=== PATIENT | female | born 1945 | race Caucasian/White ===

== ENCOUNTER 2018-09-21 11:19 | Outpatient (CLI) | payer OTHER | END 2018-09-21 11:20 | disposition home or self-care (01) | LOC: LAB 11:19 | PROVIDERS: ATTEND Physician Assistant Medical | DX: M79.661 Pain in right lower leg (principal) | CPT/HCPCS: 36415; 85379 ==

== ENCOUNTER 2019-11-26 17:41 | Outpatient (CLI) | payer MEDICARE | END 2019-11-26 17:42 | disposition home or self-care (01) | LOC: COV 17:41 | PROVIDERS: ATTEND Family Medicine | DX: R05 Cough (principal); R50.9 Fever, unspecified | CPT/HCPCS: 81599; U0002 ==

== ENCOUNTER 2020-03-30 10:54 | Outpatient (CLI) | payer MEDICARE, OTHER | END 2020-03-30 10:55 | disposition home or self-care (01) | LOC: COV 10:54 | PROVIDERS: ATTEND Family Medicine | DX: J02.9 Acute pharyngitis, unspecified (principal); R09.81 Nasal congestion; Z20.828 Contact with and (suspected) exposure to other viral communicable diseases ==

== ENCOUNTER 2021-09-02 11:45 | Emergency (ER) | payer MEDICARE, OTHER ==
--- NOTE | 2021-09-02 12:23 | ED Physician Documentation ---
PD HPI FOCAL NEURO - Stated complaint Stated Complaint: facial tingling/numbness - Chief complaint Chief Complaint: Neuro - History obtained from History obtained from: Patient - Additional information Additional information: Is a griselda 76-year-old woman with history of hypercholesterolemia and WPW but no other arrhythmias or history of A. fib. She was in her usual state of health right around 9 AM and developed a 10 to 15-minute episode of right-sided facial numbness associated with vertigo and disequilibrium but no diplopia. It went away after 10 or 15 minutes and now has no symptoms. It was not associated with arm or leg numbness and it was not associated with weakness anywhere. She is currently treating her hypercholesterolemia with diet as she has had side effects with statins and other cholesterol medications in the past. She not diabetic does not have a diagnosed history of hypertension. Review of Systems Ten Systems: 10 systems reviewed and negative Constitutional: denies: Fever, Chills, Myalgias Nose: reports: Reviewed and negative Throat: reports: Reviewed and negative Cardiac: reports: Reviewed and negative Respiratory: reports: Reviewed and negative PD PAST MEDICAL HISTORY - Allergies Allergies/Adverse Reactions: Allergies Allergy/AdvReac Type Severity Reaction Status Date / Time Unable to Assess Allergy Verified 09/02/21 11:56 PD ED PE NORMAL - Vitals Vital signs reviewed: Yes - General General: Alert and oriented X 3, No acute distress - HEENT HEENT: PERRL, EOMI - Neck Neck: Supple, no meningeal sign, No bony TTP - Cardiac Cardiac: RRR, No murmur - Respiratory Respiratory: No respiratory distress, Clear bilaterally - Abdomen Abdomen: Normal bowel sounds, Soft, Non tender - Back Back: No CVA TTP, No spinal TTP - Derm Derm: Normal color, Warm and dry - Extremities Extremities: No edema, No calf tenderness / cord - Neuro Neuro: Alert and oriented X 3, Normal speech NIHSS - Time Time: 12:23 - Level of Consciousness Level of consciousness: (0) Alert, Keenly responsive LOC Questions: (0) Answers both Q's correct LOC Commands: (0) Performs both correctly - Gaze Best Gaze: (0) Normal - Visual Visual: (0) No loss - Facial Palsy Facial Palsy: (0) Normal, symmetrical movement - Motor Arms (both separate) Motor Arm (right): (0) No drift Motor Arm (left): (0) No drift - Motor Legs (both separate) Motor Leg (right): (0) No drift Motor Leg (left): (0) No drift - Limb Ataxia Limb Ataxia: (0) Absent - Sensory Sensory: (0) Normal - Best Language Best Language: (0) No aphasia - Dysarthria Dysarthria: (0) Normal - Extinction and Inattention (formally neg Extinction and inattention: (0) No abnormality - Total Score/Results Total Score/Result: 0 Results - Vitals Vitals: Vital Signs - 24 hr 09/02/21 09/02/21 09/02/21 11:51 11:55 13:55 Temperature 36.3 C L 36.5 C Heart Rate 91 91 63 Respiratory 16 16 12 Rate Blood Pressure 170/65 H 170/65 H 130/68 O2 Saturation 97 97 100 Oxygen O2 Source Room air - EKG (time done) 1202 Rate: Rate (enter#) (63) Rhythm: NSR [place]: Normal Intervals: Normal TN QRS: Normal Ischemia: Normal ST segments - Labs Labs: Laboratory Tests 09/02/21 09/02/21 09/02/21 12:36 12:36 12:36 WBC 4.8 RBC 4.20 Hgb 13.8 Hct 40.7 MCV 96.9 MCH 32.9 H MCHC 33.9 RDW 13.2 Plt Count 224 MPV 9.0 Neut # (Auto) 3.0 Lymph # (Auto) 1.2 L [place] # (Auto) 0.4 Eos # (Auto) 0.1 Baso # (Auto) 0.1 Absolute Nucleated RBC 0.00 Nucleated RBC % 0.0 PT INR Sodium 132 L Potassium 4.0 Chloride 97 L Carbon Dioxide 28 Anion Gap 7.0 BUN 14 Creatinine 0.8 Estimated GFR (MDRD) 69 L Glucose 85 Calcium 8.7 Triglycerides 56 Cholesterol 227 H LDL Cholesterol, Calc 140 H VLDL Cholesterol 11 HDL Cholesterol 76 LDL/HDL Ratio 1.8 Cholesterol/HDL Ratio 3.0 09/02/21 12:50 WBC RBC Hgb Hct MCV MCH MCHC RDW Plt Count MPV Neut # (Auto) Lymph # (Auto) [place] # (Auto) Eos # (Auto) Baso # (Auto) Absolute Nucleated RBC Nucleated RBC % PT 10.9 INR 1.0 Sodium Potassium Chloride Carbon Dioxide Anion Gap BUN Creatinine Estimated GFR (MDRD) Glucose Calcium Triglycerides Cholesterol LDL Cholesterol, Calc VLDL Cholesterol HDL Cholesterol LDL/HDL Ratio Cholesterol/HDL Ratio PD MEDICAL DECISION MAKING - ED course ED course: 76-year-old woman presents with resolved TIA consisting of right-sided facial numbness and vertigo lasting 10 to 15 minutes. ABD CD 2 score is 3 and we discussed her risk of imminent stroke which is fairly low at 1% for 2 days, 1.2% for 7 days and approximately 3% for 90 days. Vascular imaging with CT angiography of the head neck was negative. We discussed admission which she declined. She wants to talk with her doctor about management of hypercholesterolemia given multiple medication reactions in the past. Departure - Departure Disposition: Home, Self Care Clinical Impression: TIA (transient ischemic attack), Hypercholesteremia Condition: Good Record reviewed to determine appropriate education?: Yes Instructions: ED Transient Ischemic Attack Follow-Up: Ryley Alexis MD [Credentialed Staff Provider] - Comments: You were seen today for a TIA, your ABCD 2 score is 3 suggesting a short-term stroke risk of 1% in the next 2 days, 1.2% in the next 7 days, and 3% over the next 90 days. Talk with your doctor about cholesterol control, take a baby aspirin, 81 mg a day. Return by ambulance immediately for new or worsening or recurrent symptoms.
[2021-09-02] MEDS ORDERED: IOPAMIDOL-300 100 ML VIAL ONE (12:36)
[2021-09-02 12:57] LABS: BASOPHILS # (AUTO) 0.1 10^3/uL (0.0-0.1); BASOPHILS % (AUTO) 1.2 %; EOSINOPHILS # (AUTO) 0.1 10^3/uL (0.0-0.7); EOSINOPHILS % (AUTO) 1.9 %; HCT - HEMATOCRIT 40.7 % (37.0-47.0); HGB - HEMOGLOBIN 13.8 g/dL (12.0-16.0); LYMPHOCYTES # (AUTO) 1.2 10^3/uL (1.5-3.5); LYMPHOCYTES % (AUTO) 25.5 %; MEAN CORPUSCULAR HEMOGLOBIN 32.9 pg (27.0-31.0); MEAN CORPUSCULAR HGB CONC 33.9 g/dL (32.0-36.0); MEAN CORPUSCULAR VOLUME 96.9 fL (81.0-99.0); MONOCYTES # (AUTO) 0.4 10^3/uL (0.0-1.0); MONOCYTES % (AUTO) 8.9 %; NEUTROPHILS % (AUTO) 62.3 %; PLT - PLATELET COUNT 224 10^3/uL (130-450); RED CELL DISTRIBUTION WIDTH 13.2 % (12.0-15.0); WHITE BLOOD COUNT 4.8 x10^3/uL (4.8-10.8)
[2021-09-02 13:01] LABS: PT - PROTHROMBIN TIME 10.9 secs (9.9-12.6)
[2021-09-02 13:04] LABS: CALCIUM 8.7 mg/dL (8.5-10.3); CREATININE 0.8 mg/dL (0.4-1.0)
[2021-09-02 13:38] LABS: CHOLESTEROL 227 mg/dL; HDL CHOLESTEROL 76 mg/dL; LDL CHOLESTEROL,CALCULATED 140 mg/dL; LDL/HDL RATIO 1.8 (<4.4); TRIGLYCERIDES 56 mg/dL; VLDL CHOLESTEROL 11 mg/dL
--- NOTE | 2021-09-02 14:14 | CT Report ---
PROCEDURE: ANGIO HEAD W/WO INDICATIONS: Tongue numbness. Dizziness. CONTRAST: IV CONTRAST: Isovue 300 ml: 80 PO CONTRAST: *NO PO CONTRAST TECHNIQUE: Precontrast 4.5 mm thick angled axial sections acquired from the foramen magnum to the vertex. Afte r the administration of intravenous contrast, 1 mm thick sections acquired through the [place] of [place] is. Postcontrast 4.5 mm thick sections then re-acquired from the foramen magnum to the vertex. 3-di mensional akqmpcj-yeiwwuhek-edcbbekuis (MIP) and/or volume rendering reformats were acquired of the c entral intracranial vasculature. For radiation dose reduction, the following was used: automated ex posure control, adjustment of mA and/or kV according to patient size. COMPARISON: None FINDINGS: Image quality: Excellent. Anterior circulation: Intracranial internal carotid arteries are normal in size and flow. The flow within the paired anterior cerebral arteries is normal and symmetric. The flow within the middle cer ebral arteries is normal and symmetric. The anterior communicating artery is seen. No aneurysms are seen. Posterior circulation: Visualized portions of the vertebral arteries demonstrate normal caliber, and join to form a normal appearing basilar artery. Flow within the posterior cerebral arteries is norm al and symmetric. No aneurysms are seen. CSF spaces: Ventricles are normal in size and shape. Basal cisterns are patent. No extra-axial flu id collections. Brain: No midline shift. No intracranial bleeds or masses. Hurtado-white matter interface appears int act. Skull and face: Calvarium and facial bones appear intact, without suspicious lesions. Sinuses: Mild mucosal thickening noted in the axillary sinuses. Mastoids are clear. IMPRESSION: 1. No acute intracranial disease process. 2. No large vessel occlusion, vascular stenosis, vascular dissection or aneurysm. Reviewed by: Kerrie Lacy MD, PhD on 09/02/2021 2:13 PM PST Approved by: Kerrie Lacy MD, PhD on 09/02/2021 2:13 PM PST Station ID: [id number]
--- NOTE | 2021-09-02 14:18 | CT Report ---
PROCEDURE: ANGIO NECK W INDICATIONS: TIA sx CONTRAST: IV CONTRAST: Isovue 300 ml: 80 PO CONTRAST: *NO PO CONTRAST TECHNIQUE: After the administration of intravenous contrast, 1.5 mm axial sections acquired from the aortic arch to the [place] of [place]. Coronal 3-D maximum intensity projection (MIP) and/or volume rendering ref ormats were then performed. For radiation dose reduction, the following was used: automated exposur e control, adjustment of mA and/or kV according to patient size. COMPARISON: None. FINDINGS: Image quality: Excellent. Carotid system: The great vessels demonstrate a conventional anatomy as they arise from the aortic a rch. The origins of the common carotid arteries appear patent. The common carotid arteries demonstr ate normal calibers and courses. Soft and calcified atherosclerotic plaque noted in the origins of th e internal carotid arteries bilaterally which causes less than 50% stenosis of the vessels. Posterior circulation: The origins of the vertebral arteries appear patent. The more superior porti ons of the vertebral arteries demonstrate normal course and caliber. They join to form a normal appe aring basilar artery. Soft tissues: Visualized neck soft tissues demonstrate no suspicious abnormalities. The thyroid is atrophied. Bones: No suspicious bony lesions. Spine degenerative disc disease and facet arthropathy are noted. Visualized cervical spine appears normally aligned. IMPRESSION: No large vessel occlusion, hemodynamically significant vascular stenosis, vascular dissection or aneu rysm. The estimate of stenosis included in the report of the imaging study was calculated using the NASCET method Reviewed by: Kerrie Lacy MD, PhD on 09/02/2021 2:17 PM PST Approved by: Kerrie Lacy MD, PhD on 09/02/2021 2:17 PM PST Station ID: [id number]
[2021-09-02 14:57] VITALS: BP 137/68
[2021-09-02] MEDS ORDERED: IOPAMIDOL-300 100 ML VIAL IVP ONE (19:05)
== END 2021-09-02 15:15 | disposition home or self-care (01) ==
LOC: ED 11:45
DX: G45.9 Transient cerebral ischemic attack, unspecified (principal); E78.00 Pure hypercholesterolemia, unspecified
CPT/HCPCS: 36415; 70496; 70498; 80048; 80061; 85025; 85610; 93005; 99283; 99284; Q9967; 83721

== ENCOUNTER 2022-06-25 14:24 | Emergency (ER) | payer MEDICARE, OTHER ==
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
[2022-06-25 15:29] LABS: HCT - HEMATOCRIT 41.9 % (37.0-47.0); HGB - HEMOGLOBIN 13.8 g/dL (12.0-16.0)
[2022-06-25 15:41] LABS: CALCIUM 9.2 mg/dL (8.5-10.3); CREATININE 0.8 mg/dL (0.4-1.0); POTASSIUM 4.3 mmol/L (3.5-5.0)
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
[2022-06-25 16:23] VITALS: BP 135/66
== END 2022-06-25 16:23 | disposition home or self-care (01) ==
LOC: ED 14:24
DX: S06.0X0A Concussion without loss of consciousness, initial encounter (principal); W22.8XXA Striking against or struck by other objects, initial encounter; Z86.73 Personal history of transient ischemic attack (TIA), and cerebral infarction without residual deficits; Z79.82 Long term (current) use of aspirin
CPT/HCPCS: 36415; 80048; 85014; 85018; 99282; 99284

== ENCOUNTER 2022-07-27 16:03 | Outpatient (CLI) | payer MEDICARE, OTHER ==
--- NOTE | 2022-07-27 21:20 | XRAY Report ---
PROCEDURE: Ankle 3 View LT INDICATIONS: LEFT ANKLE SPRAIN TECHNIQUE: 3 views of the ankle were acquired. COMPARISON: None FINDINGS: Bones: No fractures or dislocations. Ankle mortise is normally aligned. No suspicious bony lesions . Soft tissues: No tibiotalar joint effusion. Achilles tendon appears normal. IMPRESSION: No acute osseous abnormality. If symptoms persist, follow-up radiographs and/or CT or MR I may be helpful for further evaluation. Reviewed by: Garrett Maradiaga MD on 07/27/2022 9:19 PM PST Approved by: Garrett Maradiaga MD on 07/27/2022 9:19 PM [facility] Station ID: [id number]
== END 2022-07-27 16:04 | disposition home or self-care (01) ==
LOC: DI.S 16:03
PROVIDERS: ATTEND Emergency Medicine
DX: S93.492A Sprain of other ligament of left ankle, initial encounter (principal)

== ENCOUNTER 2023-01-09 11:04 | Emergency (ER) | payer MEDICARE, OTHER ==
--- NOTE | 2023-01-09 11:36 | ED Physician Documentation ---
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 At that time she was on 3 months of Xarelto and tolerated well. After hip replacement 1 year ago she was on prophylactic Xarelto and broke out in a rash, but not clear if it was from that or other medication she was on. Last had an upper endoscopy, she was in the left lateral decubitus position for that procedure. Over the subsequent days while gardening heavily she developed pain in her left calf. No shortness of breath. PD PAST MEDICAL HISTORY - Allergies Allergies/Adverse Reactions: Allergies Allergy/AdvReac Type Severity Reaction Status Date / Time clindamycin Allergy Rash Verified 06/25/22 14:40 rivaroxaban [From Xarelto] Allergy Rash Verified 06/25/22 14:38 tramadol Allergy Rash Verified 06/25/22 14:38 Sulfa (Sulfonamide AdvReac Rash Verified 06/25/22 14:40 Antibiotics) PD ED PE NORMAL - Vitals Vital signs reviewed: Yes - General General: Alert and oriented X 3, No acute distress - Derm Derm: Normal color, Warm and dry - Extremities Extremities: Other (Positive Homans' sign. Symmetric legs. Normal pedal pulses. Some tenderness in the left calf.) - Neuro Neuro: Alert and oriented X 3, Normal speech Results - Vitals Vitals: Vital Signs - 24 hr 01/09/23 01/09/23 01/09/23 11:19 11:48 13:09 Temperature 36.4 C L 36.4 C L Heart Rate 62 62 59 L Respiratory 18 18 18 Rate Blood Pressure 142/68 H 123/68 119/63 O2 Saturation 99 96 100 Oxygen O2 Source Room air - Rads (name of study) Left lower extremity duplex showed superficial phlebitis Relevant Findings:: Final report received PD Medical Decision Making - ED course ED course: 77-year-old with history of DVT presents with left calf pain and is found to have superficial phlebitis. We discussed options for treatment including short course of anticoagulants versus aspirin and a repeat ultrasound in a week and she opted for the latter. Departure - Departure Disposition: 01 Home, Self Care Clinical Impression: Superficial thrombophlebitis Condition: Good Record reviewed to determine appropriate education?: Yes Instructions: ED Phlebitis Superficial Comments: As discussed, there is no clot in the deep veins of your left leg. There is a superficial venous thrombus in your left calf. Out of an abundance of caution I recommend calling your physician and having a repeat ultrasound in a week to make sure it is not extending. Return for new or worsening symptoms. Continue aspirin. You can also apply heat to the area. Discharge Date/Time: 01/09/23 13:11
[2023-01-09 13:10] VITALS: BP 119/63
--- NOTE | 2023-01-09 14:00 | Ultrasound Report ---
PROCEDURE: Duplex Ext Veins Left INDICATIONS: leg pain TECHNIQUE: Real-time imaging, as well as color and pulse Doppler interrogation, were performed of the lower extr emity deep veins from the inguinal ligament to the popliteal fossa. COMPARISON: None. FINDINGS: The deep veins are normally compressible, and free of intraluminal thrombus. Color and pu lse Doppler demonstrate normal phasic intraluminal flow. There is normal augmentation response to di stal compression maneuver. At the area of pain, there is superficial thrombophlebitis of the proximal/medial calf within the mus kristan. IMPRESSION: No evidence of DVT. At the area of pain, there is superficial thrombophlebitis of the proximal/medial calf within the mus kristan. Reviewed by: Henrry Barton MD on 01/09/2023 1:59 PM PDT Approved by: Henrry Barton MD on 01/09/2023 1:59 PM PDT Station ID: [id number]
== END 2023-01-09 13:11 | disposition home or self-care (01) ==
LOC: ED 11:04
DX: I80.3 Phlebitis and thrombophlebitis of lower extremities, unspecified (principal)
CPT/HCPCS: 99283; 99284

== ENCOUNTER 2023-01-18 21:58 | Outpatient (CLI) | payer MEDICARE, OTHER ==
--- NOTE | 2023-01-19 11:14 | Ultrasound Report ---
PROCEDURE: Duplex Ext Veins Left INDICATIONS: L CALF SUPERFICIAL VENOUS THROMBUS TECHNIQUE: Real-time imaging, as well as color and pulse Doppler interrogation, were performed of the lower extr emity deep veins from the inguinal ligament to the popliteal fossa. COMPARISON: 01/09/2023 FINDINGS: The deep veins are normally compressible, and free of intraluminal thrombus. Color and pu lse Doppler demonstrate normal phasic intraluminal flow. There is normal augmentation response to di stal compression maneuver. IMPRESSION: No evidence of left lower extremity deep venous thrombosis. Previously visualized left calf venous th rombosis is no longer visualized. Reviewed by: Garrett Maradiaga MD on 01/19/2023 11:12 AM PDT Approved by: Garrett Maradiaga MD on 01/19/2023 11:12 AM PDT Station ID: [id number]
== END 2023-01-18 21:59 | disposition home or self-care (01) ==
LOC: DI 21:58
PROVIDERS: ATTEND Family Medicine
DX: Z09 Encounter for follow-up examination after completed treatment for conditions other than malignant neoplasm (principal); Z86.718 Personal history of other venous thrombosis and embolism

== ENCOUNTER 2023-11-29 15:54 | Emergency (ER) | payer MEDICARE, OTHER ==
--- NOTE | 2023-11-29 16:41 | ED Physician Documentation ---
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 She was on Xarelto at the time and did fine after that but was placed on Xarelto again a couple of years ago prophylactically for hip replacement at that time she reacted with a body wide rash. She been sitting a lot lately and is scheduled for a hip replacement on the other side soon, and developed over the last week some right leg swelling. She was sent for an ultrasound by her PCP today which showed: Acute nonocclusive DVT in the popliteal mid to distal vein that is mobile and nonocclusive DVT in the tibioperoneal, gastrocnemius, peroneal, and soleal veins. She has no chest pain, she is feeling a bit short of breath but thinks that might be due to anxiety. PD PAST MEDICAL HISTORY - Past Medical History Past Medical History: Yes Neuro: TIA Musculoskeletal: Other Other Past Medical History: DVT in right leg 2016 - Past Surgical History Past Surgical History: Yes Ortho: Hip replacement - Present Medications Home Medications: Ambulatory Orders Medication Instructions Recorded Confirmed Aspirin [Adult Aspirin Regimen] 81 mg PO DAILY 11/29/23 11/29/23 Enoxaparin Sodium [Lovenox] 80 mg SQ BID #60 ea 11/29/23 Levothyroxine Sodium [Levoxyl] 100 mcg PO DAILY 11/29/23 11/29/23 Liothyronine [Cytomel] 5 mcg PO BID 11/29/23 11/29/23 - Allergies Allergies/Adverse Reactions: Allergies Allergy/AdvReac Type Severity Reaction Status Date / Time clindamycin Allergy Rash Verified 11/29/23 16:16 rivaroxaban [From Xarelto] Allergy Rash Verified 11/29/23 16:16 tramadol Allergy Rash Verified 11/29/23 16:16 Sulfa (Sulfonamide AdvReac Rash Verified 11/29/23 16:16 Antibiotics) - Social History Does the pt smoke?: No Smoking Status: Never smoker Does the pt drink ETOH?: No PD ED PE NORMAL - Vitals Vital signs reviewed: Yes - General General: Alert and oriented X 3, No acute distress - Cardiac Cardiac: RRR, No murmur - Respiratory Respiratory: No respiratory distress, Clear bilaterally - Abdomen Abdomen: Non tender - Extremities Extremities: Other (Swelling of the right leg from calf down with good pedal pulses and no tenderness. Negative Homans' sign.) - Neuro Neuro: Alert and oriented X 3, Normal speech - Psych Psych: Normal mood, Normal affect Results - Vitals Vitals: Vital Signs - 24 hr 11/29/23 11/29/23 16:05 17:43 Temperature 36.5 C Heart Rate 72 60 Respiratory 16 16 Rate Blood Pressure 152/76 H 102/76 O2 Saturation 96 99 Oxygen O2 Source Room air - Labs Labs: Laboratory Tests 11/29/23 11/29/23 11/29/23 16:40 16:40 16:40 WBC 7.8 RBC 4.36 Hgb 13.7 Hct 41.2 MCV 94.5 MCH 31.4 H MCHC 33.3 RDW 12.8 Plt Count 223 MPV 8.9 Neut # (Auto) 5.8 Lymph # (Auto) 1.3 L Todd # (Auto) 0.6 Eos # (Auto) 0.1 Baso # (Auto) 0.0 Absolute Nucleated RBC 0.00 Nucleated RBC % 0.0 PT 11.3 INR 1.0 APTT 27.7 Sodium 133 L Potassium 3.9 Chloride 100 L Carbon Dioxide 28 Anion Gap 5.0 L BUN 19 Creatinine 0.9 Estimated GFR (MDRD) 60 L Glucose 114 H Calcium 9.4 Total Bilirubin 0.4 AST 21 ALT 17 Alkaline Phosphatase 89 Total Protein 6.4 Albumin 3.8 Globulin 2.6 Albumin/Globulin Ratio 1.5 - Rads (name of study) CT chest Relevant Findings:: Discussed with rads, EMP independent interpretation of test PD Medical Decision Making - ED course ED course: She presents with a DVT diagnosed as an outpatient with concern for PE. Workup in the emergency department demonstrates unremarkable CBC, CMP, and PT PTT. She does have a tiny PE discussed with radiology. She was treated here with Lovenox given her history of intolerance to Xarelto and she was comfortable with this plan. Her vital signs were unremarkable. Departure - Departure Disposition: Home, Self Care Clinical Impression: Deep vein thrombosis Qualifiers: DVT location: lower extremity Affected thrombotic vein of extremity: unspecified vein of extremity Chronicity: acute Laterality: right Qualified Code(s): I82.401 - Acute embolism and thrombosis of unspecified deep veins of right lower extremity Pulmonary embolism Qualifiers: Pulmonary embolism type: single subsegmental (without acute cor pulmonale) Qualified Code(s): I26.93 - Single subsegmental pulmonary embolism without acute cor pulmonale Condition: Good Record reviewed to determine appropriate education?: Yes Instructions: DVT Dc Prescriptions: Enoxaparin Sodium [Lovenox] 80 mg SQ BID #60 ea Comments: I sent the prescription electronically to [facility] in [place]. Take the shot twice a day and follow-up with your primary care physician within the week for recheck. Presume she may want a repeat ultrasound of your right leg in a week or 2. You do have a very tiny pulmonary embolism but this would not change diagnosis or treatment otherwise. You have several labs pending on discharge which will have extended turnaround times, but your primary care physician can look them up and request them from our lab they include: Antithrombin activity Factor V Leiden mutation Lupus anticoagulant Protein C function Protein S function Forms: PCP List
[2023-11-29 16:44] LABS: BASOPHILS % (AUTO) 0.4 %; EOSINOPHILS # (AUTO) 0.1 10^3/uL (0.0-0.7); EOSINOPHILS % (AUTO) 1.2 %; HCT - HEMATOCRIT 41.2 % (37.0-47.0); HGB - HEMOGLOBIN 13.7 g/dL (12.0-16.0); LYMPHOCYTES # (AUTO) 1.3 10^3/uL (1.5-3.5); LYMPHOCYTES % (AUTO) 16.5 %; MEAN CORPUSCULAR HEMOGLOBIN 31.4 pg (27.0-31.0); MEAN CORPUSCULAR HGB CONC 33.3 g/dL (32.0-36.0); MEAN CORPUSCULAR VOLUME 94.5 fL (81.0-99.0); MEAN PLATELET VOLUME 8.9 fL (7.9-10.8); MONOCYTES # (AUTO) 0.6 10^3/uL (0.0-1.0); MONOCYTES % (AUTO) 7.6 %; NEUTROPHILS # (AUTO) 5.8 10^3/uL (1.5-6.6); NEUTROPHILS % (AUTO) 73.9 %; PLT - PLATELET COUNT 223 10^3/uL (130-450); RED BLOOD COUNT 4.36 10^6/uL (4.20-5.40); RED CELL DISTRIBUTION WIDTH 12.8 % (12.0-15.0); WHITE BLOOD COUNT 7.8 x10^3/uL (4.8-10.8)
[2023-11-29] MEDS ORDERED: iohexoL-300 100 ML VIAL ONE (16:47)
[2023-11-29 16:55] LABS: PARTIAL THROMBOPLASTIN TIME 27.7 secs (24.9-33.3)
[2023-11-29 16:58] LABS: ALBUMIN 3.8 g/dL (3.2-5.5); ALBUMIN/GLOBULIN RATIO 1.5 (1.0-2.2); BILIRUBIN,TOTAL 0.4 mg/dL (0.2-1.0); CALCIUM 9.4 mg/dL (8.5-10.3); CREATININE 0.9 mg/dL (0.6-1.3); POTASSIUM 3.9 mmol/L (3.5-4.5); TOTAL PROTEIN 6.4 g/dL (6.4-8.9)
[2023-11-29 17:00] LABS: PT - PROTHROMBIN TIME 11.3 secs (9.9-12.6)
[2023-11-29] MEDS: ENOXAPARIN 80 MG/0.8 ML SYRINGE SUBQ STA (17:11)
[2023-11-29 17:49] VITALS: O2SAT 99
--- NOTE | 2023-11-29 18:32 | CT Report ---
PROCEDURE: Angio Chest INDICATIONS: dyspnea dvt CONTRAST: Omni 300 80ml TECHNIQUE: After the administration of intravenous contrast, 2 mm axial images were acquired from the pulmonary apices to the posterior costophrenic angles during the arterial phase. In addition, 1 mm lung kernel and 5 mm soft tissue kernel reconstructions were performed. 3-dimensional coronal oblique maximum int ensity projection (MIP) reformats, 8 mm axial MIP, and 5 mm coronal and sagittal MPR reformats were t hen performed through the thorax. For radiation dose reduction, the following was used: automated exp osure control, adjustment of mA and/or kV according to patient size. COMPARISON: None. FINDINGS: Image quality: Excellent. Large vessels: Segmental and subsegmental pulmonary emboli bilaterally. For example left upper lobe, (4/41); right upper lobe, (4/89). RV LV ratio 0.86. No evidence of acute aortic syndrome or aortic an eurysm. Lungs and pleura: No consolidation. No pleural effusions. No pneumothorax. No suspicious pulmonary no dules which require follow up. Mediastinum: Heart size is normal. No pericardial effusion. No large vessel abnormality. No mediastin al adenopathy by size criteria. Chest wall and lower neck: Thyroid is unremarkable. No axillary or supraclavicular adenopathy by size . Bones: No aggressive osseous abnormality. Upper Abdomen: Unremarkable. IMPRESSION: 1. Segmental and subsegmental pulmonary emboli. Mild embolic burden. RV LV ratio 0.9. No right heart strain demonstrated. 2. No consolidation. 3. No pleural effusion. Results were communicated to Dr. Deluna at 11/29/2023 6:29 PM PDT. Reviewed by: Edwardo Mott MD on 11/29/2023 6:31 PM PDT Approved by: Edwardo Mott MD on 11/29/2023 6:31 PM PDT Station ID: [id number]
[2023-11-29 18:44] VITALS: BP 130/57
[2023-11-29] MEDS: iohexoL-300 100 ML VIAL IVP ONE (21:03)
== END 2023-11-29 18:50 | disposition home or self-care (01) ==
LOC: ED 15:54
DX: I82.401 Acute embolism and thrombosis of unspecified deep veins of right lower extremity (principal); I26.93 Single subsegmental thrombotic pulmonary embolism without acute cor pulmonale
CPT/HCPCS: 36415; 71275; 80053; 81241; 85025; 85300; 85303; 85306; 85598; 85610; 85613; 85730; 85732; 96372; 99284; J1650; Q9967

== ENCOUNTER 2024-02-12 21:24 | Emergency (ER) | payer MEDICARE, OTHER ==
[2024-02-12 22:09] LABS: BASOPHILS # (AUTO) 0.1 10^3/uL (0.0-0.1); BASOPHILS % (AUTO) 0.9 %; EOSINOPHILS # (AUTO) 0.4 10^3/uL (0.0-0.7); HCT - HEMATOCRIT 37.8 % (37.0-47.0); HGB - HEMOGLOBIN 12.2 g/dL (12.0-16.0); LYMPHOCYTES # (AUTO) 1.6 10^3/uL (1.5-3.5); LYMPHOCYTES % (AUTO) 23.2 %; MEAN CORPUSCULAR HEMOGLOBIN 31.2 pg (27.0-31.0); MEAN CORPUSCULAR HGB CONC 32.3 g/dL (32.0-36.0); MEAN CORPUSCULAR VOLUME 96.7 fL (81.0-99.0); MEAN PLATELET VOLUME 8.9 fL (7.9-10.8); MONOCYTES # (AUTO) 0.6 10^3/uL (0.0-1.0); MONOCYTES % (AUTO) 8.2 %; NEUTROPHILS # (AUTO) 4.2 10^3/uL (1.5-6.6); NEUTROPHILS % (AUTO) 61.6 %; PLT - PLATELET COUNT 233 10^3/uL (130-450); RED BLOOD COUNT 3.91 10^6/uL (4.20-5.40); RED CELL DISTRIBUTION WIDTH 13.2 % (12.0-15.0); WHITE BLOOD COUNT 6.8 x10^3/uL (4.8-10.8)
[2024-02-12 22:23] LABS: ALBUMIN/GLOBULIN RATIO 1.5 (1.0-2.2); BILIRUBIN,TOTAL 0.5 mg/dL (0.2-1.0); CALCIUM 9.5 mg/dL (8.5-10.3); CREATININE 0.8 mg/dL (0.6-1.3); POTASSIUM 3.7 mmol/L (3.5-4.5); TOTAL PROTEIN 6.7 g/dL (6.4-8.9)
--- NOTE | 2024-02-13 00:37 | ED Physician Documentation ---
History of Present Illness - Stated complaint Stated Complaint: HIGH BP - Chief complaint Chief Complaint: Neuro - History obtained from History obtained from: Patient - Additonal information Additional information: HPI from patient. Patient c/o high blood pressure readings at home. Patient does not take her blood pressures on a regular/routine basis but says her blood pressures tend to run 120s/60s. She says that on several readings today "my blood pressure is all over the map" (per patient). she wrote down several readings throughout the course of the day, lowest 148/62, highest 186/83. She is not having acute signs/symptoms that would correlate with acute HTN (specifically denies chest pain, severe PEÑA, acute visual changes, AMS, numbness, weakness (aside from several weeks of fatigue)). Patient had DVT diagnosed in November 2023, rx lovenox which had subsequently been changed to eliquis. She had hip replacement last month, restarted the eliquis but stopped taking the eliquis on her own a pproximately 1 week ago. PD PAST MEDICAL HISTORY - Past Medical History Past Medical History: Yes Neuro: TIA Musculoskeletal: Other - Past Surgical History Past Surgical History: Yes Ortho: Hip replacement - Present Medications Home Medications: Ambulatory Orders Medication Instructions Recorded Confirmed Aspirin [Adult Aspirin Regimen] 81 mg PO DAILY 11/29/23 11/29/23 Levothyroxine Sodium [Levoxyl] 100 mcg PO DAILY 11/29/23 11/29/23 Liothyronine [Cytomel] 5 mcg PO BID 11/29/23 11/29/23 Apixaban [Eliquis] 5 mg PO BID 01/09/24 - Allergies Allergies/Adverse Reactions: Allergies Allergy/AdvReac Type Severity Reaction Status Date / Time clindamycin Allergy Rash Verified 02/12/24 21:41 rivaroxaban [From Xarelto] Allergy Rash Verified 02/12/24 21:41 tramadol Allergy Rash Verified 02/12/24 21:41 Sulfa (Sulfonamide AdvReac Rash Verified 02/12/24 21:41 Antibiotics) - Social History Does the pt smoke?: No Smoking Status: Never smoker Does the pt drink ETOH?: No PD ED PE NORMAL - Vitals Vital signs reviewed: Yes - General General: Alert and oriented X 3, No acute distress, Well developed/nourished - Cardiac Cardiac: RRR, No murmur - Respiratory Respiratory: No respiratory distress, Clear bilaterally - Abdomen Abdomen: Soft, Non tender - Neuro Neuro: Alert and oriented X 3, combat systems officer 2-12 intact, No motor deficit, No sensory deficit, Normal speech Eye Opening: Spontaneous Motor: Obeys Commands Verbal: Oriented GCS Score: 15 Results - Vitals Vitals: Oxygen O2 Source Room air - Labs Labs: Laboratory Tests 02/12/24 02/12/24 02/13/24 22:06 22:06 01:13 WBC 6.8 RBC 3.91 L Hgb 12.2 Hct 37.8 MCV 96.7 MCH 31.2 H MCHC 32.3 RDW 13.2 Plt Count 233 MPV 8.9 Neut # (Auto) 4.2 Lymph # (Auto) 1.6 [place] # (Auto) 0.6 Eos # (Auto) 0.4 Baso # (Auto) 0.1 Absolute Nucleated RBC 0.00 Nucleated RBC % 0.0 Sodium 134 L Potassium 3.7 Chloride 98 L Carbon Dioxide 31 Anion Gap 5.0 L BUN 17 Creatinine 0.8 Estimated GFR (MDRD) 69 L Glucose 102 Calcium 9.5 Total Bilirubin 0.5 AST 18 ALT 12 Alkaline Phosphatase 119 Total Protein 6.7 Albumin 4.0 Globulin 2.7 Albumin/Globulin Ratio 1.5 Lipase 39 Urine Color YELLOW Urine Clarity CLEAR Urine pH 7.0 Ur Specific [place] 1.010 Urine Protein NEGATIVE Urine Glucose (UA) NEGATIVE Urine Ketones NEGATIVE Urine Occult Blood NEGATIVE Urine Nitrite NEGATIVE Urine Bilirubin NEGATIVE Urine Urobilinogen 0.2 (NORMAL) Ur Leukocyte Esterase NEGATIVE Urine RBC 0-5 Urine WBC 0-3 Ur Squamous Epith Cells RARE Squamous Urine Bacteria Rare Urine Culture Comments NOT INDICATED PD Medical Decision Making - ED course Complexity details: reviewed results, re-evaluated patient, considered differential, d/w patient ED course: Presents with concerns regarding high blood pressure readings today, essentially asymptomatic (has mild PEÑA, abdominal c/o x weeks; these are not part of her chief complaint tonight and only come up on ROS). Initial blood pressure readings in ED are 180s/70s-80), but improve to 168/66 without intervention. She also notes blood pressure earlier today was 148/62; while this is (per patient) a high SBP for her compared to baseline, overall the elevated readings at home and in ED are not high enough (nor without correlative concerning signs/symptoms) that would indicate need for/benefit from either emergent intervention or starting patient on BP medication(s). I discussed this with patient but emphasized the importance of continuing to monitor and record her blood pressures, at this point on a daily basis (2-3 times/day), recording the results, and then following up with PCP within 2-3 weeks to reassess whether antihypertensive rx is indicated. Return precautions were discussed as well as results of tonight's tests. Unremarkable CBC, ER abdominal panel (GFR 69 but normal bun, creatinine). Normal UA. Departure - Departure Disposition: Home, Self Care Clinical Impression: High blood pressure Qualifiers: Hypertension type: unspecified Qualified Code(s): I10 - Essential (primary) hypertension Condition: Good Instructions: ED Hypertension Poss Comments: Your blood pressures were elevated during your emergency department visit, but, as we discussed, not to an extent that would require/indicate immediate treatment. Unless there are signs/symptoms that correlate with (would be caused by) high blood pressure, incidentally noted high blood pressure readings can typically be reevaluated by one's primary care provider. You should start taking your blood pressures on a daily basis (two or three times per day) and record the results. Follow up with your primary care provider within the next 2-3 weeks and bring the results of these blood pressure readings. If your blood pressures are consistently high, your primary care provider can start you on an antihypertensive medication if indicated. There were no concerning findings on tonight's blood test. Your white blood cell count, red blood cell count, and platelets were all normal. Your sodium was minimally below normal range (incidental finding and not something you would need to have rechecked. your sodium level was 134, normal range is 135-145). You had normal BUN and creatinine (kidney function tests). One other measure of kidney function was slightly below normal range (GFR 69), but unchanged on previous results dating back to 2020. Your urinalysis was normal including no protein in the urine and no evidence of urinary tract infection. Forms: PCP List Discharge Date/Time: 02/13/24 01:45
[2024-02-13 01:15] LABS: BILIRUBIN,URINE NEGATIVE (NEGATIVE); GLUCOSE, URINE (UA) NEGATIVE (NEGATIVE); KETONES,URINE (UA) NEGATIVE (NEGATIVE); LEUKOCYTE ESTERASE, URINE NEGATIVE (NEGATIVE); NITRITE,URINE NEGATIVE (NEGATIVE); OCCULT BLOOD,URINE NEGATIVE (NEGATIVE); PROTEIN,URINE NEGATIVE (NEGATIVE); UROBILINOGEN,URINE 0.2 (NORMAL) E.U./dL (NORMAL)
[2024-02-13 01:22] LABS: BACTERIA,URINE Rare /HPF (None Seen); CLARITY,URINE CLEAR (CLEAR); RBC,URINE 0-5 /HPF (0-5); SQUAMOUS EPITHELIAL CELL,UR RARE Squamous (<= Few); WBC,URINE 0-3 /HPF (0-5)
[2024-02-13 01:34] VITALS: BP 168/66; O2SAT 98
== END 2024-02-13 01:45 | disposition home or self-care (01) ==
LOC: ED 21:24
DX: I10 Essential (primary) hypertension (principal); Z79.01 Long term (current) use of anticoagulants; Z79.82 Long term (current) use of aspirin; Z79.899 Other long term (current) drug therapy
CPT/HCPCS: 36415; 80053; 81001; 83690; 85025; 87086; 99283